=== PATIENT | male | born 1965 | race Caucasian/White ===

== ENCOUNTER 2018-10-31 13:45 | Emergency (ER) | payer BC ==
[2018-10-31] MEDS ORDERED: cloNIDine HCl 0.1 MG TAB ONE (14:22)
[2018-10-31 14:46] LABS: Absolute Lymphocytes (CBC) 0.6 K/uL (0.7-4.9); Basophils % 0.4 % (0-1.3); Eosinophils % 0.4 % (0-4.4); Hematocrit 46.3 % (39.6-49.0); MPV 7.3 fL (7.6-11.3); Monocytes % 9.9 % (3.3-12.3); RBC Red Blood Cell Count 4.76 M/uL (4.33-5.43)
[2018-10-31 15:02] LABS: ALT/SGPT 78 U/L (12-78); AST/SGOT 95 U/L (15-37); Albumin 4.4 g/dL (3.4-5.0); Alkaline Phosphatase 63 U/L (45-117); BUN Blood Urea Nitrogen 8 mg/dL (7-18); Bicarbonate 26 mmol/L (21-32); Bilirubin Direct 0.3 mg/dL (0-0.2); Bilirubin Total 0.8 mg/dL (0.2-1.0); Glucose Level 112 mg/dL (74-106); Lipase 152 U/L (73-393); Potassium 3.9 mmol/L (3.5-5.1); Protein, Total 7.4 g/dL (6.4-8.2); Sodium Level 131 mmol/L (136-145)
--- NOTE | 2018-10-31 15:34 | RAD REPORT ---
EXAM DESCRIPTION: CTAbdomen Pelvis W Contrast - 10/31/2018 3:20 pm CLINICAL HISTORY: Abdominal pain. ABD PAIN COMPARISON: No comparisons TECHNIQUE: Biphasic CT imaging of the abdomen and pelvis was performed with 100 ml non-ionic IV cont rast. All CT scans are performed using dose optimization technique as appropriate and may include automated exposure control or mA/KV adjustment according to patient size. FINDINGS: The lung bases are clear. Mild fatty liver is seen. 14 x 16 mm hypodense lesion is present in the right lobe of the liver conta ins a central calcification. Most likely, this is a benign lesion. No aggressive liver lesion or intr a/extrahepatic biliary dilatation seen. Increased density seen within the gallbladder. The spleen, pa ncreas, right adrenal gland is normal. 11 mm left adrenal nodule is present, likely an adenoma. The r ight kidney hydronephrosis mass. A 14 x 12 mm mass is present in the medial superior cortex of the left kidney. No bowel obstruction, free air, free fluid or abscess. The appendix is normal. No evidence of signi ficant lymphadenopathy. No suspicious bony findings. IMPRESSION: 14 x 12 mm solid mass is seen superior medial left kidney cortex, very worrisome for a s mall RCC. Advise followup nonemergent urological consultation. High density material seen within the gallbladder may represent gallbladder stones. Circumscribed, hypodense 14 x 16 lesion right lobe of the liver with a small central calcification, f avored to be benign in etiology. Nonemergent MR liver protocol could be obtained if further workup is needed clinically.
--- NOTE | 2018-10-31 16:15 | ER ---
Nurse's Notes [facility] Name: Livan Torres Age: 53 yrs Sex: Male : 1965 Arrival Date: 10/31/2018 Time: 13:50 Bed 7 Private MD: Giorgio Cabrera B Diagnosis: Cholelithiasis;Upper abdominal pain, unspecified;Essential (primary) hypertension Presentation: 10/31 14:01 Presenting complaint: Patient states: INTERMITTENT RUQ PAIN RADIATING TO BACK. bp Transition of care: patient was not received from another setting of care. Onset of symptoms was October 31, 2018 at 09:00. Risk Assessment: Do you want to hurt yourself or someone else? Patient reports no desire to harm self or others. Initial Sepsis Screen: Does the patient meet any 2 criteria? No. Patient's initial sepsis screen is negative. Does the patient have a suspected source of infection? No. Patient's initial sepsis screen is negative. Care prior to arrival: None. 14:01 Method Of Arrival: Ambulatory bp 14:01 Acuity: RADHA 3 bp Triage Assessment: 14:02 General: Appears in no apparent distress. uncomfortable, Behavior is cooperative, bp appropriate for age, anxious. Pain: Complains of pain in right upper quadrant. EENT: No deficits noted. Neuro: No deficits noted. Cardiovascular: No deficits noted. Respiratory: No deficits noted. GI: Reports upper abdominal pain, nausea, vomiting. : No signs and/or symptoms were reported regarding the genitourinary system. Derm: No deficits noted. Musculoskeletal: No deficits noted. Historical: - Allergies: 14:02 No Known Allergies; bp - Home Meds: 14:02 NON-COMPLIANT [Active]; bp - PMHx: 14:02 Hypertension; bp - Immunization history:: Adult Immunizations up to date. - Social history:: Smoking status: Patient/guardian denies using tobacco. - Ebola Screening: : No symptoms or risks identified at this time. Screenin:04 Abuse screen: Denies threats or abuse. Denies injuries from another. Nutritional bp screening: No deficits noted. Tuberculosis screening: No symptoms or risk factors identified. Fall Risk None identified. Assessment: 14:04 General: SEE TRIAGE NOTE. bp 15:00 Reassessment: Patient and/or family updated on plan of care and expected duration. Pain aj1 level reassessed. General: Appears in no apparent distress. comfortable, Behavior is calm, cooperative, appropriate for age. Pain: Complains of pain in right upper quadrant Pain does not radiate. Pain currently is 3 out of 10 on a pain scale. Quality of pain is described as aching. Neuro: Level of Consciousness is awake, alert, obeys commands, Oriented to person, place, time, situation. Cardiovascular: Patient's skin is warm and dry. Respiratory: Airway is patent Respiratory effort is even, unlabored, Respiratory pattern is regular, symmetrical. GI: Abdomen is flat, non-distended, Bowel sounds present X 4 quads. Abd is soft X 4 quads Abdomen is tender to palpation in right upper quadrant Reports nausea, vomiting, Patient currently denies diarrhea. : No signs and/or symptoms were reported regarding the genitourinary system. EENT: No signs and/or symptoms were reported regarding the EENT system. Derm: No signs and/or symptoms reported regarding the dermatologic system. Skin is pink, warm \T\ dry. normal. Musculoskeletal: No signs and/or symptoms reported regarding the musculoskeletal system. Circulation, motion, and sensation intact. 16:00 Reassessment: Patient appears in no apparent distress at this time. No changes from aj1 previously documented assessment. Patient and/or family updated on plan of care and expected duration. Pain level reassessed. Patient is alert, oriented x 3, equal unlabored respirations, skin warm/dry/pink. Vital Signs: 14:02 BP 217 / 122; Pulse 116; Resp 20; Temp 97.3; Pulse Ox 98% ; Weight 65.77 kg; Height 5 bp ft. 7 in. (170.18 cm); 15:00 BP 187 / 116; Pulse 90; Resp 18; Pulse Ox 98% on R/A; aj1 16:36 BP 183 / 102; Pulse 92; Resp 18; Pulse Ox 97% on R/A; aj1 14:02 Body Mass Index 22.71 (65.77 kg, 170.18 cm) bp ED Course: 13:50 Patient arrived in ED. dp 13:50 Giorgio Cabrera MD is Private Physician. dp 13:54 Raghu Morris, DONNY is Primary Nurse. bp 13:55 Fatimah Godwin FNP-C is [facility]. kb 13:55 Christopher Martinez MD is Attending Physician. kb 14:02 Triage completed. bp 14:02 Arm band placed on. bp 14:04 Patient has correct armband on for positive identification. Bed in low position. Call bp light in reach. Side rails up X2. 14:08 Radiology exam delayed due to lab results not completed at this time. (BUN/Creatinine). mw3 14:12 Initial lab(s) drawn, by me, sent to lab. Inserted saline lock: 20 gauge in right dh3 forearm, using aseptic technique. Blood collected. 14:34 IV discontinued, intact, bleeding controlled, No redness/swelling at site. Pressure dh3 dressing applied. 14:36 Lab(s) recollected, by me, sent to lab. Inserted saline lock: 18 gauge in left dh3 antecubital area, using aseptic technique. Blood collected. 14:45 Radiology exam delayed due to lab results not completed at this time. (BUN/Creatinine). mw3 14:48 Report received from DONNY Krishnamurthy. aj1 15:00 No provider procedures requiring assistance completed. aj1 15:17 CT completed. Patient tolerated procedure well. Patient moved back from CT. bq 15:20 CT Abd/Pelvis - IV Contrast Only In Process Unspecified. EDMS 16:37 IV discontinued, intact, bleeding controlled, No redness/swelling at site. Pressure aj1 dressing applied. Administered Medications: 14:08 Drug: cloNIDine 0.1 mg Route: PO; bp Outcome: 16:14 Discharge ordered by . kb 16:37 Discharged to home ambulatory. aj1 16:37 Condition: good 16:37 Discharge instructions given to patient, Instructed on discharge instructions, follow up and referral plans. medication usage, Demonstrated understanding of instructions, follow-up care, medications, Prescriptions given X 3. 16:37 Patient left the ED. aj1 Signatures: Dispatcher [employer] EDMS Fatimah Godwin, DIESEL SERVICE JOURNEYMAN-C DIESEL SERVICE JOURNEYMAN-Maureen Dove RN RN aj1 Alla Gracia [facility] Raghu Morris, DONNY RN Marifer Renee 3 Christofer Meeks
--- NOTE | 2018-10-31 16:15 | EDPHYS ---
[facility] Name: Livan Torres Age: 53 yrs Sex: Male : 1965 Arrival Date: 10/31/2018 Time: 13:50 Bed 7 Private MD: Giorgio Cabrera B ED Physician Christopher Martinez HPI: 10/31 14:32 This 53 yrs old Male presents to ER via Ambulatory with complaints of kb Abdominal Pain, Back Pain, Vomiting. 14:32 The patient presents with abdominal pain in the right upper quadrant. Onset: The kb symptoms/episode began/occurred this morning, at 09:00. The symptoms do not radiate. Associated signs and symptoms: Pertinent positives: nausea and vomiting. The symptoms are described as intermittent. Modifying factors: The symptoms are alleviated by nothing, the symptoms are aggravated by nothing. Severity of pain: At its worst the pain was moderate in the emergency department the pain has resolved. The patient has not experienced similar symptoms in the past. The patient has not recently seen a physician. Historical: - Allergies: 14:02 No Known Allergies; bp - Home Meds: 14:02 NON-COMPLIANT [Active]; bp - PMHx: 14:02 Hypertension; bp - Immunization history:: Adult Immunizations up to date. - Social history:: Smoking status: Patient/guardian denies using tobacco. - Ebola Screening: : No symptoms or risks identified at this time. ROS: 14:31 Constitutional: Negative for fever, chills, and weight loss, Cardiovascular: Negative kb for chest pain, palpitations, and edema, Respiratory: Negative for shortness of breath, cough, wheezing, and pleuritic chest pain, Back: Negative for injury and pain, : Negative for injury, bleeding, discharge, and swelling, MS/Extremity: Negative for injury and deformity, Skin: Negative for injury, rash, and discoloration, Neuro: Negative for headache, weakness, numbness, tingling, and seizure. 14:31 Abdomen/GI: Positive for abdominal pain, nausea and vomiting, Negative for diarrhea, constipation, abdominal cramps, abdominal distension, anorexia. Exam: 14:31 Constitutional: This is a well developed, well nourished patient who is awake, alert, kb and in no acute distress. Head/Face: Normocephalic, atraumatic. Chest/axilla: Normal chest wall appearance and motion. Nontender with no deformity. No lesions are appreciated. Cardiovascular: Regular rate and rhythm with a normal S1 and S2. No gallops, murmurs, or rubs. Normal PMI, no JVD. No pulse deficits. Respiratory: Lungs have equal breath sounds bilaterally, clear to auscultation and percussion. No rales, rhonchi or wheezes noted. No increased work of breathing, no retractions or nasal flaring. Back: No spinal tenderness. No costovertebral tenderness. Full range of motion. Skin: Warm, dry with normal turgor. Normal color with no rashes, no lesions, and no evidence of cellulitis. MS/ Extremity: Pulses equal, no cyanosis. Neurovascular intact. Full, normal range of motion. Neuro: Awake and alert, GCS 15, oriented to person, place, time, and situation. Cranial nerves II-XII grossly intact. Motor strength 5/5 in all extremities. Sensory grossly intact. Cerebellar exam normal. Normal gait. 14:31 Abdomen/GI: Inspection: abdomen appears normal, Bowel sounds: normal, in all quadrants, Palpation: soft, in all quadrants, moderate abdominal tenderness, in the right upper quadrant. 14:31 Constitutional: This is a well developed, well nourished patient who is awake, alert, kb and in no acute distress. Vital Signs: 14:02 BP 217 / 122; Pulse 116; Resp 20; Temp 97.3; Pulse Ox 98% ; Weight 65.77 kg; Height 5 bp ft. 7 in. (170.18 cm); 15:00 BP 187 / 116; Pulse 90; Resp 18; Pulse Ox 98% on R/A; aj1 16:36 BP 183 / 102; Pulse 92; Resp 18; Pulse Ox 97% on R/A; aj1 14:02 Body Mass Index 22.71 (65.77 kg, 170.18 cm) bp MDM: 13:55 Patient medically screened. kb 14:31 Data reviewed: vital signs, nurses notes. Data interpreted: Pulse oximetry: on room air kb is 98 %. Interpretation: normal. 16:12 Counseling: I had a detailed discussion with the patient and/or guardian regarding: the kb historical points, exam findings, and any diagnostic results supporting the discharge/admit diagnosis, lab results, radiology results, the need for outpatient follow up, a general surgeon, a urologist, to return to the emergency department if symptoms worsen or persist or if there are any questions or concerns that arise at home. ED course: Discussed mass on kidney suspicious for cancer and to follow up with urology. Verbal understanding received. Also discussed need to restart BP medications. Pt states he has the medications that he is supposed to take at home he just stopped taking them. Also educated to follow up with General Surgeon for gallstones. . 10/31 14:00 Order name: Basic Metabolic Panel kb 10/31 14:00 Order name: CBC with Diff; Complete Time: 14:52 kb 10/31 14:00 Order name: Hepatic Function; Complete Time: 15:03 kb 10/31 14:00 Order name: Lipase; Complete Time: 15:03 kb 10/31 14:00 Order name: CT Abd/Pelvis - IV Contrast Only; Complete Time: 15:41 kb 10/31 14:01 Order name: Basic Metabolic Panel; Complete Time: 15:03 EDMS 10/31 14:00 Order name: IV Saline Lock; Complete Time: 14:08 kb 10/31 14:00 Order name: Labs collected and sent; Complete Time: 14:08 kb Administered Medications: 14:08 Drug: cloNIDine 0.1 mg Route: PO; bp Disposition: 10/31/18 16:14 Discharged to Home. Impression: Cholelithiasis, Upper abdominal pain, unspecified, Essential (primary) hypertension. - Condition is Stable. - Discharge Instructions: Cholelithiasis, [id number], Abdominal Pain, Adult, [id number], Hypertension, [id number]. - Prescriptions for Bentyl 20 mg Oral Tablet - take 1 tablet by ORAL route every 6 hours As needed; 20 tablet. Zofran 4 mg Oral Tablet - take 1 tablet by ORAL route every 6 hours As needed; 20 tablet. Diclofenac Sodium 75 mg Oral Tablet, Delayed Release (E.C.) - take 1 tablet by ORAL route 2 times per day As needed; 30 tablet. - Medication Reconciliation Form, Thank You Letter, Antibiotic Education, Prescription Opioid Use form. - Follow up: Emergency Department; When: As needed; Reason: Worsening of condition. Follow up: Private Physician; When: 2 - 3 days; Reason: Recheck today's complaints, Continuance of care, Re-evaluation by your physician. Signatures: Dispatcher [employer] EDMS Fatimah Godwin, THIMBLE PRESS OPERATOR-C THIMBLE PRESS OPERATOR-Jose Antoniob Maureen Solorio, RN RN aj1 Raghu Morris RN RN bp Corrections: (The following items were deleted from the chart) 16:14 16:14 10/31/2018 16:14 Discharged to Home. Impression: Cholelithiasis; Upper abdominal kb pain, unspecified. Condition is Stable. Forms are Medication Reconciliation Form, Thank You Letter, Antibiotic Education, Prescription Opioid Use. Follow up: Emergency Department; When: As needed; Reason: Worsening of condition. Follow up: Private Physician; When: 2 - 3 days; Reason: Recheck today's complaints, Continuance of care, Re-evaluation by your physician. kb 16:37 16:14 10/31/2018 16:14 Discharged to Home. Impression: Cholelithiasis; Upper abdominal aj1 pain, unspecified; Essential (primary) hypertension. Condition is Stable. Forms are Medication Reconciliation Form, Thank You Letter, Antibiotic Education, Prescription Opioid Use. Follow up: Emergency Department; When: As needed; Reason: Worsening of condition. Follow up: Private Physician; When: 2 - 3 days; Reason: Recheck today's complaints, Continuance of care, Re-evaluation by your physician. kb
== END 2018-10-31 16:37 | disposition home or self-care (01) ==
LOC: ER 13:45
DX: K80.20 Calculus of gallbladder without cholecystitis without obstruction (principal); I10 Essential (primary) hypertension
CPT/HCPCS: 36415; 74177; 80048; 80076; 83690; 85025; 99284; Q9967